=== PATIENT | male | born 1990 | race Caucasian/White ===

== ENCOUNTER 2019-04-08 20:20 | Emergency (ER) | payer BC ==
[2019-04-08] MEDS ORDERED: Lidocaine 1% 50 ML MDV INJECT ONE (21:43)
--- NOTE | 2019-04-08 23:35 | EDM.PDOC ---
ED HPI GENERAL MEDICAL PROBLEM - General Chief Complaint: Laceration Stated Complaint: MIDDLE FINGER LACERATION Time Seen by Provider: 04/08/19 21:04 Source of Information: Reports: Patient, RN Notes Reviewed - History of Present Illness INITIAL COMMENTS - FREE TEXT/NARRATIVE: 28-year-old male suffered laceration injury to left middle finger a short time ago. He was using a knife to open a package and cutting what sounds like some type of a plastic band. The knife slipped with resultant laceration dorsal aspect left middle finger. No numbness or tingling there is pain with motion but no weakness. Left Finger-Middle Pain Score (Numeric/FACES): 5 - Related Data Allergies Allergy/AdvReac Type Severity Reaction Status Date / Time amoxicillin Allergy Swelling Verified 04/08/19 21:32 Home Meds: Home Meds . [No Known Home Meds] 04/08/19 [History] Past Medical History Hematologic History: Reports: Other (See Below) Other Hematologic History: plasma phoresis 2003 - Past Surgical History HEENT Surgical History: Reports: Adenoidectomy, Tonsillectomy GI Surgical History: Reports: Appendectomy Social & Family History - Tobacco Use Smoking Status *Q: Never Smoker - Caffeine Use Caffeine Use: Reports: Soda, Tea - Recreational Drug Use Recreational Drug Use: No ED ROS GENERAL - Review of Systems Review Of Systems: See Below HEENT: Reports: No Symptoms Respiratory: Reports: No Symptoms Cardiovascular: Reports: No Symptoms GI/Abdominal: Reports: No Symptoms Musculoskeletal: Reports: Other (Injury to left middle finger) Skin: Reports: Other (Laceration left little finger) Neurological: Denies: Numbness, Tingling, Weakness ED EXAM, SKIN/RASH Exam: See Below General Appearance: Alert, Mild Distress Respiratory/Chest: No Respiratory Distress Extremities: Other (2 cm long in terms of circumferential length somewhat superficial flap dorsal aspect mid left middle finger just distal to the PIP joint. No foreign material seen) Neurological: Alert, No Motor/Sensory Deficits Skin: Warm, Dry ED SKIN PROCEDURES - Laceration/Wound Repair Left Distal Dorsal Digit - 3rd (Middle) Lac/Wound length In cm: 3 Appearance: Other (Long curved somewhat superficial flap) Distal NVT: Neuro & Vascular Intact Anesthetic Type: Local Local Anesthesia - Lidocaine (Xylocaine): 1% Plain Skin Prep: Saline Exploration/Debridement/Repair: Wound Explored, Minimal Debridement Suture Size: 3-0 # of Sutures: 10 Course - Vital Signs Last Recorded V/S: Last Vital Signs Temp 97.3 F 04/08/19 21:36 Pulse 67 04/08/19 21:36 Resp 20 04/08/19 21:36 BP 125/88 04/08/19 21:36 Pulse Ox 99 04/08/19 21:36 - Orders/Labs/Meds Meds: Medications Discontinued Medications Generic Name Dose Route Start Last Admin Trade Name Meg PRN Reason Stop Dose Admin Lidocaine HCl 50 ml 04/08/19 21:43 04/08/19 22:51 Xylocaine 1% INJECT 04/08/19 21:44 50 ml ONETIME ONE Administration Departure - Departure Time of Disposition: 23:33 Disposition: Home, Self-Care 01 Condition: Fair Clinical Impression: Finger laceration Qualifiers: Encounter type: initial encounter Finger: middle finger Damage to nail status: without damage Foreign body presence: without foreign body Laterality: left Qualified Code(s): S61.213A - Laceration without foreign body of left middle finger without damage to nail, initial encounter - Discharge Information Instructions: Laceration Care, Adult, [id number] Referrals: PCP,Not In Area [Primary Care Provider] - Forms: ED Department Discharge, ED Return to Work/School Form Additional Instructions: Laceration care instructions, so out in about 10 days, they have those removed at our [facility] medical [facility], call [phone] for appointment. Tube gauze dressing for the next 2 days, then apply and keep protected with nonstick Telfa type pad wrapping with tube gauze or multiple Band-Aids as needed. Rest and elevate hand as much as possible to reduce swelling, have rechecked any sign of infection
== END 2019-04-09 00:20 | disposition home or self-care (01) ==
LOC: JD.ED 20:20
DX: S61.213A Laceration without foreign body of left middle finger without damage to nail, initial encounter (principal); Z88.1 Allergy status to other antibiotic agents; W26.0XXA Contact with knife, initial encounter
CPT/HCPCS: 12002; 99282; J2001